=== PATIENT | female | born 1970 | race Caucasian/White ===

== ENCOUNTER 2018-12-25 15:09 | Emergency (ER) | payer MEDICAID ==
[~2018-12-25] VITALS: Ht 172.7 cm; Wt 60.0 kg
[2018-12-25] MEDS ORDERED: ONDANSETRON 4MG ODT PO ONE (16:45)
[2018-12-25] MEDS ORDERED: HYDROCODONE/APAP 7.5/325MG 1 TAB TABLET PO ONE (16:45)
[2018-12-25] MEDS ORDERED: HYDROCODONE/ACETAMINOPHEN 5/325MG TABLET PO ONE (17:00)
[2018-12-25] MEDS ORDERED: KETOROLAC 60MG/2ML VIAL IM ONE (17:15)
[2018-12-25] MEDS ORDERED: ONDANSETRON HCL 4MG/2ML INJ IM ONE (17:15)
[2018-12-25 17:58] VITALS: BP 127/78
== END 2018-12-25 18:03 | disposition home or self-care (01) ==
LOC: ER 15:09
DX: K86.1 Other chronic pancreatitis (principal); F11.20 Opioid dependence, uncomplicated; R03.0 Elevated blood-pressure reading, without diagnosis of hypertension
CPT/HCPCS: 96372; 99284; J1885; J2405; Q0162; Z7610

== ENCOUNTER 2020-03-05 07:59 | Inpatient (IN) | payer MEDICAID ==
[~2020-03-05] VITALS: Ht 167.6 cm; Wt 66.7 kg
[2020-03-05] MEDS ORDERED: ACETAMINOPHEN 325MG TABLET PO STA (09:05)
[2020-03-05] MEDS ORDERED: PIPERACILLIN/TAZ 3.375G PREMIX 50 ML IV ONE (09:15)
[2020-03-05] MEDS ORDERED: SODIUM CHLORIDE 0.9% 1000ML BAG (SEPSIS BOLUS) IV ONE (09:15)
[2020-03-05] MEDS ORDERED: VANCOMYCIN 1 G PREMIX 200 ML IV ONE (09:15)
[2020-03-05] MEDS ORDERED: LIDOCAINE HCL 1% 20ML VIAL (Pyxis) INJ ONE (10:05)
[2020-03-05 11:12] LABS: BASOPHILS % 0.7 % (0.0-2.0); EOSINOPHILS % 1.8 % (0.0-5.0); HEMATOCRIT. 30.2 % (36.0-48.0); LYMPHOCYTES % 8.9 % (20.0-50.0); MEAN CORPUSCULAR HEMOGLOBIN 28.4 pg (28.0-32.0); MEAN PLATELET VOLUME 6.5 fl (7.4-10.4); NEUTROPHILS % 79.6 % (40.0-76.0); PLATELET 337 x1000/uL (130-400); RED BLOOD CELL COUNT 3.51 mill/uL (4.2-5.4); RED CELL DISTRIBUTION WIDTH 16.8 % (11.6-14.6)
[2020-03-05 11:19] LABS: CHLORIDE 105 mEq/L (98-107)
[2020-03-05 11:22] LABS: PROTHROMBIN TIME 10.4 sec (9.6-11.0)
[2020-03-05] MEDS ORDERED: IOHEXOL-300 100 ML BOTTLE ONE (12:29)
[2020-03-05] MEDS ORDERED: KETOROLAC 15MG/ML VIAL IV ONE (12:45)
[2020-03-05 14:18] LABS: CLARITY URINE CLOUDY (CLEAR); COLOR URINE YELLOW (YELLOW); KETONES URINE 1+ (NEGATIVE); LEUKOCYTE ESTERASE URINE 2+ (NEGATIVE); NITRITE URINE NEGATIVE (NEGATIVE); OCCULT BLOOD URINE NEGATIVE (NEGATIVE); PH URINE 6.5 (4.5-8.0); PROTEIN URINE NEGATIVE (NEGATIVE); SPECIFIC GRAVITY URINE 1.015 (1.005-1.030); UROBILINOGEN URINE 0.2 E.U./dL (0.2-1.0)
[2020-03-05] MEDS ORDERED: ONDANSETRON HCL 4MG/2ML INJ IV PRN (16:15)
[2020-03-05] MEDS ORDERED: CLONIDINE 0.1MG TABLET PO PRN (16:15)
[2020-03-05] MEDS: PIPERACILLIN/TAZ 3.375G PREMIX 50 ML IV SCH (16:51)
[2020-03-05] MEDS: DIPHENHYDRAMINE 50MG/ML VIAL IV PRN (16:52)
[2020-03-05] MEDS: KETOROLAC 30MG/ML VIAL IV PRN (16:52)
[2020-03-05] MEDS: SODIUM CHLORIDE 0.9% 1,000 ML IV SCH (17:00)
[2020-03-05] MEDS: VANCOMYCIN 1 G PREMIX 200 ML IV SCH (20:11)
[2020-03-06] MEDS: SODIUM CHLORIDE 0.9% 1,000 ML IV SCH (01:43)
[2020-03-06] MEDS: PIPERACILLIN/TAZ 3.375G PREMIX 50 ML IV SCH ×2 (01:43→18:05)
[2020-03-06 04:46] LABS: BASOPHILS % 0.7 % (0.0-2.0); HEMATOCRIT. 27.7 % (36.0-48.0); LYMPHOCYTES % 14.7 % (20.0-50.0); MEAN CORPUSCULAR HEMOGLOBIN 28.2 pg (28.0-32.0); MEAN CORPUSCULAR VOLUME 86.7 fL (81.0-99.0); MEAN PLATELET VOLUME 6.7 fl (7.4-10.4); MONOCYTES % 9.9 % (2.0-8.0); NEUTROPHILS % 68.7 % (40.0-76.0); PLATELET 290 x1000/uL (130-400); RED CELL DISTRIBUTION WIDTH 16.6 % (11.6-14.6)
[2020-03-06 04:53] LABS: CHLORIDE 109 mEq/L (98-107)
[2020-03-06 05:07] LABS: HDL CHOLESTEROL 71 mg/dL (40-59); LDL CHOLESTEROL 55 mg/dL (5-100)
[2020-03-06] MEDS: DIPHENHYDRAMINE 50MG/ML VIAL IV PRN ×5 (05:56→23:36)
[2020-03-06] MEDS: KETOROLAC 30MG/ML VIAL IV PRN ×5 (05:57→23:37)
[2020-03-06 09:00] VITALS: BP_SYST 107; BP_SYST 130; BP_DIAS 58; BP_DIAS 70
[2020-03-06] MEDS: VANCOMYCIN 1 G PREMIX 200 ML IV SCH (15:52)
[2020-03-06] MEDS: PIPERACILLIN/TAZOBACTAM 3.375 G in DEXT 5% WATER 100 ML IV SCH ×2 (16:00→23:35)
[2020-03-06] MEDS ORDERED: CLON1TAB MT (16:14)
[2020-03-06] MEDS ORDERED: *PATIENT'S OWN MEDICATION STORAGE XX SCH (16:15)
[2020-03-06] MEDS ORDERED: INFLUENZA VACCINE 05/PF 0.5 ML VIAL IM ONE (16:15)
[2020-03-06 20:00] VITALS: BP 100/64
[2020-03-07] VITALS: BP 122/69
[2020-03-07] MEDS: DIPHENHYDRAMINE 50MG/ML VIAL IV PRN ×3 (05:35→16:40)
[2020-03-07] MEDS: KETOROLAC 30MG/ML VIAL IV PRN ×3 (05:36→21:17)
[2020-03-07] MEDS: VANCOMYCIN 1 G PREMIX 200 ML IV SCH ×2 (05:36→18:31)
[2020-03-07] MEDS: CLONAZEPAM 1MG TABLET PO SCH ×2 (09:00→17:00)
[2020-03-07] MEDS: PIPERACILLIN/TAZOBACTAM 3.375 G in DEXT 5% WATER 100 ML IV SCH ×3 (10:23→21:38)
[2020-03-07 12:00] VITALS: BP 97/49
[2020-03-07 12:00] LABS: *AMPHETAMINES SCREEN URINE NEGATIVE (NEGATIVE); *BARBITURATES SCREEN URINE NEGATIVE (NEGATIVE); *BENZODIAZEPINES SCREEN URINE NEGATIVE (NEGATIVE); *COCAINE SCREEN URINE NEGATIVE (NEGATIVE); CANNABINOID URINE SCREEN NEGATIVE (NEGATIVE); OPIATES URINE SCREEN PRESUMTIVE POSITIVE (NEGATIVE); PHENCYCLIDINE URINE SCREEN NEGATIVE (NEGATIVE)
[2020-03-07 12:12] LABS: METHADONE URINE SCREEN PRESUMTIVE POSITIVE (NEGATIVE)
[2020-03-07 15:56] VITALS: BP_SYST 103; BP_SYST 106; BP_DIAS 60; BP_DIAS 61
[2020-03-07 16:00] VITALS: BP 103/61
[2020-03-07] MEDS ORDERED: DOXY100C2 MT (18:05)
[2020-03-07 20:00] VITALS: BP 130/49
[2020-03-07] MEDS: TRAZODONE HCL 50MG TABLET PO SCH (21:30)
[2020-03-08] MEDS: TRAZODONE HCL 50MG TABLET PO SCH (01:27)
[2020-03-08] MEDS: DOXYCYCLINE HYCLATE 100MG CAPSULE PO SCH (01:33)
[2020-03-08] MEDS: DIPHENHYDRAMINE 50MG/ML VIAL IV PRN ×3 (02:22→20:40)
[2020-03-08 04:00] VITALS: BP 129/65
[2020-03-08] MEDS: PIPERACILLIN/TAZOBACTAM 3.375 G in DEXT 5% WATER 100 ML IV SCH ×3 (04:25→17:14)
[2020-03-08] MEDS: KETOROLAC 30MG/ML VIAL IV PRN (06:21)
[2020-03-08] MEDS: VANCOMYCIN 1 G PREMIX 200 ML IV SCH ×2 (06:40→18:42)
[2020-03-08 08:00] VITALS: BP 102/59
[2020-03-08] MEDS: CLONAZEPAM 1MG TABLET PO SCH ×2 (09:00→17:00)
[2020-03-08 09:29] LABS: BASOPHILS % 0.6 % (0.0-2.0); EOSINOPHILS % 4.8 % (0.0-5.0); HEMATOCRIT. 27.9 % (36.0-48.0); HEMOGLOBIN. 9.2 g/dL (12.0-16.0); LYMPHOCYTES % 11.1 % (20.0-50.0); MEAN CORPUSCULAR HEMOGLOBIN 28.9 pg (28.0-32.0); MEAN CORPUSCULAR VOLUME 87.2 fL (81.0-99.0); MEAN PLATELET VOLUME 6.6 fl (7.4-10.4); MONOCYTES % 8.9 % (2.0-8.0); NEUTROPHILS % 74.6 % (40.0-76.0); PLATELET 272 x1000/uL (130-400); RED BLOOD CELL COUNT 3.19 mill/uL (4.2-5.4); RED CELL DISTRIBUTION WIDTH 16.7 % (11.6-14.6)
[2020-03-08 09:48] LABS: CHLORIDE 108 mEq/L (98-107)
[2020-03-08 09:56] LABS: VANCOMYCIN TROUGH 18.3 ug/mL (5.0-10.0)
[2020-03-08 12:00] VITALS: BP 106/60
[2020-03-08] MEDS: ACETAMINOPHEN 325MG TABLET PO PRN ×2 (16:05→20:42)
[2020-03-08] MEDS ORDERED: *PATIENT'S OWN MEDICATION STORAGE XX NR (17:45)
[2020-03-08 20:00] VITALS: BP 100/56
[2020-03-08] MEDS ORDERED: NON FORMULARY PATIENT HOME MED XX SCH (21:30)
[2020-03-09] VITALS: BP 104/62
[2020-03-09] MEDS: PIPERACILLIN/TAZOBACTAM 3.375 G in DEXT 5% WATER 100 ML IV SCH ×5 (01:20→22:38)
[2020-03-09] MEDS: DIPHENHYDRAMINE 50MG/ML VIAL IV PRN ×3 (02:25→17:25)
[2020-03-09 04:00] VITALS: BP 143/48
[2020-03-09] MEDS: ACETAMINOPHEN 325MG TABLET PO PRN (06:32)
[2020-03-09] MEDS: KETOROLAC 30MG/ML VIAL IV PRN (06:45)
[2020-03-09] MEDS: CLONAZEPAM 1MG TABLET PO SCH (09:00)
[2020-03-09] MEDS: DOXYCYCLINE HYCLATE 100MG CAPSULE PO SCH ×2 (09:55→17:22)
[2020-03-09] MEDS: VALACYCLOVIR HCL 500MG TABLET PO SCH ×2 (09:56→22:37)
[2020-03-09 12:00] VITALS: BP 116/69
[2020-03-09] MEDS: HYDROCODONE/ACETAMINOPHEN 10/325MG TABLET PO PRN ×2 (15:04→22:44)
[2020-03-09] MEDS: DOCUSATE SODIUM 100MG CAPSULE PO SCH (17:32)
[2020-03-09 20:00] VITALS: BP 101/62
[2020-03-09] MEDS: SODIUM CHLORIDE 0.9% 1,000 ML IV SCH (20:15)
[2020-03-09] MEDS: TRAZODONE HCL 50MG TABLET PO SCH (22:37)
[2020-03-10] VITALS: BP 110/60
[2020-03-10] MEDS: CLONAZEPAM 0.5MG TABLET PO SCH ×2 (00:55→21:36)
[2020-03-10 04:00] VITALS: BP 112/62
[2020-03-10] MEDS: PIPERACILLIN/TAZOBACTAM 3.375 G in DEXT 5% WATER 100 ML IV SCH ×4 (05:05→21:37)
[2020-03-10] MEDS: HYDROCODONE/ACETAMINOPHEN 10/325MG TABLET PO PRN ×3 (05:07→18:35)
[2020-03-10 07:12] LABS: EOSINOPHILS % 5.2 % (0.0-5.0); HEMATOCRIT. 28.5 % (36.0-48.0); HEMOGLOBIN. 9.4 g/dL (12.0-16.0); LYMPHOCYTES % 16.5 % (20.0-50.0); MEAN CORPUSCULAR HEMOGLOBIN 28.2 pg (28.0-32.0); MEAN CORPUSCULAR VOLUME 85.7 fL (81.0-99.0); MEAN PLATELET VOLUME 6.6 fl (7.4-10.4); MONOCYTES % 9.4 % (2.0-8.0); NEUTROPHILS % 67.9 % (40.0-76.0); PLATELET 315 x1000/uL (130-400); RED BLOOD CELL COUNT 3.33 mill/uL (4.2-5.4); RED CELL DISTRIBUTION WIDTH 16.5 % (11.6-14.6)
[2020-03-10 08:00] VITALS: BP 109/65
[2020-03-10 08:32] LABS: CHLORIDE 110 mEq/L (98-107)
[2020-03-10] MEDS: VALACYCLOVIR HCL 500MG TABLET PO SCH ×2 (08:46→21:36)
[2020-03-10] MEDS: DOCUSATE SODIUM 100MG CAPSULE PO SCH ×2 (08:46→16:39)
[2020-03-10] MEDS: DOXYCYCLINE HYCLATE 100MG CAPSULE PO SCH ×2 (08:46→16:39)
[2020-03-10 12:00] VITALS: BP 105/64
[2020-03-10 16:00] VITALS: BP 107/69
[2020-03-10] MEDS ORDERED: PATIENT OWN MEDICATION PO NR (17:45)
[2020-03-10 20:00] VITALS: BP 105/58
[2020-03-10] MEDS: TRAZODONE HCL 50MG TABLET PO SCH (21:36)
[2020-03-11] VITALS: BP 102/60
[2020-03-11] MEDS: HYDROCODONE/ACETAMINOPHEN 10/325MG TABLET PO PRN ×3 (01:39→17:15)
[2020-03-11 04:00] VITALS: BP 106/60
[2020-03-11] MEDS: PIPERACILLIN/TAZOBACTAM 3.375 G in DEXT 5% WATER 100 ML IV SCH ×4 (04:42→21:44)
[2020-03-11] MEDS ORDERED: HYDROCODONE/ACETAMINOPHEN 5/325MG TABLET PO PRN (05:45)
[2020-03-11] MEDS ORDERED: LORAZEPAM 1MG TABLET PO PRN (05:45)
[2020-03-11 08:00] VITALS: BP 106/51
[2020-03-11] MEDS: DOXYCYCLINE HYCLATE 100MG CAPSULE PO SCH ×2 (08:42→17:15)
[2020-03-11] MEDS: DOCUSATE SODIUM 100MG CAPSULE PO SCH ×2 (08:42→17:00)
[2020-03-11] MEDS: VALACYCLOVIR HCL 500MG TABLET PO SCH ×2 (08:43→21:46)
[2020-03-11] MEDS: LACTULOSE 20G/30ML UDC PO SCH (08:43)
[2020-03-11] MEDS: DIPHENHYDRAMINE 50MG/ML VIAL IV PRN (11:43)
[2020-03-11] MEDS ORDERED: IOHEXOL-300 100 ML BOTTLE ONE (11:54)
[2020-03-11] MEDS ORDERED: MAGNESIUM CITRATE 300ML SOLUTION PO NR (12:00)
[2020-03-11 12:07] LABS: BASOPHILS % 0.6 % (0.0-2.0); HEMOGLOBIN. 9.5 g/dL (12.0-16.0); LYMPHOCYTES % 14.5 % (20.0-50.0); MEAN CORPUSCULAR HEMOGLOBIN 28.1 pg (28.0-32.0); MEAN CORPUSCULAR VOLUME 85.8 fL (81.0-99.0); MEAN PLATELET VOLUME 6.6 fl (7.4-10.4); MONOCYTES % 8.6 % (2.0-8.0); NEUTROPHILS % 71.3 % (40.0-76.0); PLATELET 354 x1000/uL (130-400); RED BLOOD CELL COUNT 3.38 mill/uL (4.2-5.4); RED CELL DISTRIBUTION WIDTH 16.6 % (11.6-14.6)
[2020-03-11 12:31] LABS: CHLORIDE 108 mEq/L (98-107)
[2020-03-11 16:00] VITALS: BP 122/74
[2020-03-11 20:00] VITALS: BP 100/48
[2020-03-11] MEDS: TRAZODONE HCL 50MG TABLET PO SCH (21:44)
[2020-03-11] MEDS: CLONAZEPAM 0.5MG TABLET PO SCH (22:14)
[2020-03-12 04:00] VITALS: BP 122/61
[2020-03-12 08:00] VITALS: BP 126/60
[2020-03-12] MEDS: SODIUM CHLORIDE 0.9% 1,000 ML IV SCH (08:15)
[2020-03-12] MEDS: DOCUSATE SODIUM 100MG CAPSULE PO SCH ×2 (09:40→16:53)
[2020-03-12] MEDS: VALACYCLOVIR HCL 500MG TABLET PO SCH ×2 (09:40→21:32)
[2020-03-12] MEDS: LACTULOSE 20G/30ML UDC PO SCH (09:41)
[2020-03-12] MEDS: HYDROCODONE/ACETAMINOPHEN 10/325MG TABLET PO PRN ×2 (10:12→16:54)
[2020-03-12] MEDS: DIPHENHYDRAMINE 50MG/ML VIAL IV PRN ×2 (13:13→21:33)
[2020-03-12] MEDS: CEFTRIAXONE 1,000 MG in DEXTROSE 5% WATER 50 ML IV SCH (13:13)
[2020-03-12 20:00] VITALS: BP 110/66
[2020-03-12] MEDS: TRAZODONE HCL 50MG TABLET PO SCH (21:33)
[2020-03-13] VITALS: BP 115/65
[2020-03-13] MEDS: CLONAZEPAM 0.5MG TABLET PO SCH ×2 (01:03→21:56)
[2020-03-13 04:00] VITALS: BP 113/60
[2020-03-13] MEDS: LACTULOSE 20G/30ML UDC PO SCH (09:48)
[2020-03-13] MEDS: DOCUSATE SODIUM 100MG CAPSULE PO SCH ×2 (09:48→17:50)
[2020-03-13] MEDS: DIPHENHYDRAMINE 50MG/ML VIAL IV PRN ×2 (09:49→16:19)
[2020-03-13] MEDS: HYDROCODONE/ACETAMINOPHEN 10/325MG TABLET PO PRN ×2 (09:55→16:19)
[2020-03-13] MEDS: VALACYCLOVIR HCL 500MG TABLET PO SCH ×2 (10:33→21:57)
[2020-03-13] MEDS: DOXYCYCLINE HYCLATE 100MG CAPSULE PO SCH ×2 (12:26→21:56)
[2020-03-13] MEDS: CEFTRIAXONE 1,000 MG in DEXTROSE 5% WATER 50 ML IV SCH (13:16)
[2020-03-13 13:22] LABS: EOSINOPHILS % 2.8 % (0.0-5.0); HEMATOCRIT. 31.5 % (36.0-48.0); HEMOGLOBIN. 10.5 g/dL (12.0-16.0); MEAN CORPUSCULAR HEMOGLOBIN 28.2 pg (28.0-32.0); MEAN CORPUSCULAR VOLUME 84.6 fL (81.0-99.0); MEAN PLATELET VOLUME 6.4 fl (7.4-10.4); MONOCYTES % 5.6 % (2.0-8.0); NEUTROPHILS % 68.6 % (40.0-76.0); PLATELET 483 x1000/uL (130-400); RED BLOOD CELL COUNT 3.72 mill/uL (4.2-5.4); RED CELL DISTRIBUTION WIDTH 15.9 % (11.6-14.6)
[2020-03-13 13:36] LABS: CHLORIDE 109 mEq/L (98-107)
[2020-03-13 20:00] VITALS: BP 120/67
[2020-03-13] MEDS: TRAZODONE HCL 50MG TABLET PO SCH (21:55)
[2020-03-14] VITALS: BP 102/54
[2020-03-14] MEDS: HYDROCODONE/ACETAMINOPHEN 10/325MG TABLET PO PRN (00:10)
[2020-03-14 04:00] VITALS: BP 91/53
[2020-03-14] MEDS: DIPHENHYDRAMINE 50MG/ML VIAL IV PRN ×2 (04:58→11:20)
[2020-03-14] MEDS: SODIUM CHLORIDE 0.9% 1,000 ML IV SCH (04:59)
[2020-03-14] MEDS: DOXYCYCLINE HYCLATE 100MG CAPSULE PO SCH (11:20)
[2020-03-14] MEDS: LACTULOSE 20G/30ML UDC PO SCH (11:20)
[2020-03-14] MEDS: VALACYCLOVIR HCL 500MG TABLET PO SCH (11:21)
[2020-03-14] MEDS: DOCUSATE SODIUM 100MG CAPSULE PO SCH (11:21)
[2020-03-14] MEDS: CEFTRIAXONE 1,000 MG in DEXTROSE 5% WATER 50 ML IV SCH (13:05)
[2020-03-14] MEDS ORDERED: FLUOXETINE HCL 20MG CAPSULE PO SCH (13:45)
== END 2020-03-14 14:42 | disposition home health service (06) | DRG 383 ==
LOC: ER 07:59 → 6EST 13:51 → EDBEDREQ 13:53 → EDBEDREQSVC 13:53 → EDBEDREQTM 13:53 → ENRESERV 03-06 07:35 → 6EST 03-06 08:51
PROVIDERS: ADMIT Internal Medicine; ATTEND Internal Medicine
PROC: 02HV33Z Insertion of Infusion Device into Superior Vena Cava, Percutaneous Approach (ICD-10-PCS; principal; 2020-03-05)
PROC: B548ZZA Ultrasonography of Superior Vena Cava, Guidance (ICD-10-PCS; 2020-03-05)
DX: L03.213 Periorbital cellulitis (principal); L03.211 Cellulitis of face; G89.4 Chronic pain syndrome; K59.00 Constipation, unspecified; F41.9 Anxiety disorder, unspecified; Z88.8 Allergy status to other drugs, medicaments and biological substances; Z79.2 Long term (current) use of antibiotics; Z79.899 Other long term (current) drug therapy; Z72.0 Tobacco use; E43 Unspecified severe protein-calorie malnutrition; Z68.23 Body mass index [BMI] 23.0-23.9, adult
CPT/HCPCS: 36415; 70487; 71045; 71046; 76937; 80048; 80053; 80061; 80202; 80305; 81003; 83605; 84145; 84443; 84484; 85025; 85651; 86141; 93005; 93970; 99285; C1725; J0696; J1200; J1885; J2543; J3370; J3490; J7030; J7040; J7060; Q9967

== ENCOUNTER 2020-04-26 13:01 | Emergency (ER) | payer MEDICAID ==
[~2020-04-26] VITALS: Ht 170.2 cm; Wt 68.0 kg
[~2020-04-26 13:01] MED LIST: CLON1TAB MT; DOXY100C2 MT
[2020-04-26] MEDS ORDERED: KETOROLAC 30MG/ML VIAL IV STA (13:45)
[2020-04-26] MEDS ORDERED: ONDANSETRON HCL 4MG/2ML INJ IV STA (13:45)
[2020-04-26] MEDS ORDERED: ACETAMINOPHEN WITH CODEINE 300/30MG TABLET PO STA (13:45)
[2020-04-26 14:55] LABS: BASOPHILS % 0.6 % (0.0-2.0); EOSINOPHILS % 0.4 % (0.0-5.0); HEMATOCRIT. 27.8 % (36.0-48.0); HEMOGLOBIN. 9.8 g/dL (12.0-16.0); LYMPHOCYTES % 10.1 % (20.0-50.0); MEAN CORPUSCULAR HEMOGLOBIN 29.7 pg (28.0-32.0); MEAN CORPUSCULAR VOLUME 83.9 fL (81.0-99.0); MONOCYTES % 8.5 % (2.0-8.0); NEUTROPHILS % 80.4 % (40.0-76.0); PLATELET 418 x1000/uL (130-400); RED BLOOD CELL COUNT 3.32 mill/uL (4.2-5.4); RED CELL DISTRIBUTION WIDTH 16.2 % (11.6-14.6)
[2020-04-26 15:04] LABS: PROTHROMBIN TIME 10.5 sec (9.6-11.0)
[2020-04-26] MEDS ORDERED: DIPHENHYDRAMINE 50MG CAPSULE PO ONE (15:15)
[2020-04-26 15:22] LABS: CHLORIDE 101 mEq/L (98-107)
[2020-04-26 15:49] LABS: CLARITY URINE CLEAR (CLEAR); COLOR URINE YELLOW (YELLOW); KETONES URINE NEGATIVE (NEGATIVE); LEUKOCYTE ESTERASE URINE NEGATIVE (NEGATIVE); NITRITE URINE NEGATIVE (NEGATIVE); OCCULT BLOOD URINE NEGATIVE (NEGATIVE); PROTEIN URINE NEGATIVE (NEGATIVE); SPECIFIC GRAVITY URINE 1.014 (1.005-1.030)
[2020-04-26] MEDS ORDERED: T3 PO (15:49)
[2020-04-26] MEDS ORDERED: ONDA4TAB5 MT (15:49)
[2020-04-26 15:55] VITALS: BP 102/58
== END 2020-04-26 17:01 | disposition home or self-care (01) ==
LOC: ER 13:10
DX: R10.13 Epigastric pain (principal); R11.2 Nausea with vomiting, unspecified; Z03.818 Encounter for observation for suspected exposure to other biological agents ruled out; Z98.890 Other specified postprocedural states; Z88.8 Allergy status to other drugs, medicaments and biological substances; Z87.19 Personal history of other diseases of the digestive system
CPT/HCPCS: 36415; 71045; 80053; 81003; 83690; 85025; 85610; 96374; 96375; 99284; C9803; J1885; J2405; Q0163; U0003